=== PATIENT | female | born 1945 | race Caucasian/White ===

== ENCOUNTER → 2016-06-10 | Outpatient (CLI) | payer MEDICARE, OTHER | END | disposition home or self-care (01) | LOC: GMAB 15:23 | PROVIDERS: ATTEND Family Medicine | DX: D50.0 Iron deficiency anemia secondary to blood loss (chronic) (principal); R94.5 Abnormal results of liver function studies ==

== ENCOUNTER → 2016-06-18 | Outpatient (CLI) | payer MEDICARE, OTHER ==
--- NOTE | 2016-06-18 12:06 | US ---
EXAM DESCRIPTION: US LIVER CLINICAL HISTORY: ABN LIVER FUNCTION STUDY COMPARISON: MRI of the abdomen dated 10 March 2015. TECHNIQUE: Liver sonography. FINDINGS: Increased echogenicity is observed throughout the liver consistent with hepatic steatosis. There is mild intrahepatic bile duct dilatation. The common bile duct measures 15mm. The gallbladder is normal and contains no stones. The pancreas is not well seen on this exam. The upper abdominal aorta and the inferior vena cava are unremarkable. The right kidney is not imaged. IMPRESSION: 1. Hepatic steatosis. 2. Dilatation of the common bile duct and intrahepatic biliary radicals is observed. The common bile duct measures 1.5 cm in diameter. The findings are similar to what was seen on a previous magnetic resonance imaging examination Electronically signed by: Ab Molina MD 06/18/2016 12:05
== END | disposition home or self-care (01) ==
LOC: US 10:38
PROVIDERS: ATTEND Family Medicine
DX: R94.5 Abnormal results of liver function studies (principal)

== ENCOUNTER → 2017-08-05 | Outpatient (CLI) | payer MEDICARE, OTHER | END | disposition home or self-care (01) | LOC: GMAB 14:21 | PROVIDERS: ATTEND Family Medicine | DX: D50.0 Iron deficiency anemia secondary to blood loss (chronic) (principal); E53.8 Deficiency of other specified B group vitamins; I10 Essential (primary) hypertension ==

== ENCOUNTER → 2017-08-07 | Outpatient (CLI) | payer MEDICARE | END | disposition home or self-care (01) | LOC: GMAB 11:12 | PROVIDERS: ATTEND Family Medicine | DX: M79.1 Myalgia (principal); D50.0 Iron deficiency anemia secondary to blood loss (chronic) ==

== ENCOUNTER → 2018-09-08 | Outpatient (CLI) | payer MEDICARE | LOC: YCFC.O 10:43 | PROVIDERS: ATTEND Family Medicine | DX: Z00.00 Encounter for general adult medical examination without abnormal findings (principal); I10 Essential (primary) hypertension; D50.9 Iron deficiency anemia, unspecified ==

== ENCOUNTER 2018-11-01 10:53 | Emergency (ER) | payer MEDICARE ==
[2018-11-01] MEDS ORDERED: ASPIRIN (CHEWABLE) 81 MG TAB PO ONE (11:19)
--- NOTE | 2018-11-01 11:42 | RAD ---
EXAM: XR Chest, 1 View CLINICAL HISTORY: 73 years old and is Female; pain TECHNIQUE: Frontal view of the chest. COMPARISON: No relevant prior studies available. FINDINGS: Limitations: None. Lungs: Unremarkable. No consolidation. Pleural space: Unremarkable. No pneumothorax. Heart: Unremarkable. No cardiomegaly. Mediastinum: Moderate to large hiatal hernia. Bones/joints: Unremarkable. IMPRESSION: No acute findings. Electronically signed by: Jesi Law MD 11/01/2018 11:39 AM CDT
[2018-11-01] MEDS ORDERED: [UNRECOGNIZED DRUG - MIXTURE] PO ONE ×2 (12:15)
[2018-11-01] MEDS ORDERED: SUCRALFATE 1 GM/10 ML 1 GM UD PO ONE (12:16)
[2018-11-01] MEDS ORDERED: PANTOPRAZOLE SOD SUSP 40 MG PCKT PO ONE (12:16)
[2018-11-01] MEDS ORDERED: cloNIDine HCL 0.1 MG TAB PO ONE (12:22)
--- NOTE | 2018-11-01 12:22 | ED.PDOC ---
History of Present Illness - General Chief Complaint: Chest Pain/DC Stated Complaint: Chest pain, diaphoresis Time Seen by Provider: 11/01/18 11:10 Source: patient Exam Limitations: no limitations - History of Present Illness Initial Comments: Lidia Ivan 73 y/o female stated she woke up early this am 0230H with burning epigastric pain went up to her chest with feeling of tightness non radiating no diaphoresis,no N/V but symptoms persist decided to come to ER Stated had also non productive cough with nasal congestion for 2 days but denies SOB but with generalized body aches today. Timing/Duration: 7-24 hours Location: central Activities at Onset: sleep Prior Chest Pain/Cardiac Workup: no prior chest pain, no prior cardiac workup Improving Factors: nothing Worsening Factors: nothing Aspirin Treatment Today: 81 mg x 4 Associated Symptoms: denies symptoms Allergies/Adverse Reactions: Allergies NO KNOWN ALLERGY Allergy (Verified 11/01/18 11:19) Home Medications: Ambulatory Orders Esomeprazole Magnesium [Nexium] 20 mg PO BID 11/16/13 Lisinopril 40 mg PO DAILY 11/16/13 Review of Systems - Review of Systems Constitutional: States: no symptoms reported EENTM: States: see HPI, nose congestion Respiratory: States: see HPI, cough Cardiology: States: see HPI, other - exertional dyspnea Gastrointestinal/Abdominal: States: no symptoms reported Genitourinary: States: no symptoms reported Musculoskeletal: States: no symptoms reported Skin: States: no symptoms reported Neurological: States: no symptoms reported Endocrine: States: no symptoms reported All other Systems: Reviewed and Negative, No Change from Baseline Past Medical History (General) - Patient Medical History Hx Seizures: No Hx Stroke: No Hx Asthma: No Hx of COPD: No Hx Cardiac Disorders: Yes Hx Congestive Heart Failure: No Hx Pacemaker: No Hx Hypertension: Yes Hx Diabetes: No Hx Gastroesophageal Reflux: Yes Hx Cancer: No Hx Hepatitis C: No Hx MRSA: No Surgical History: appendectomy, tonsillectomy, Hysterectomy, other - partial gastrectomy- gastric ulcer,hysterectomy - Vaccination History Hx Tetanus, Diphtheria Vaccination: No Hx Influenza Vaccination: No Hx Pneumococcal Vaccination: No - Social History Hx Tobacco Use: No Hx Chewing Tobacco Use: No Hx Alcohol Use: No Hx Substance Use: No Hx Substance Use Treatment: No Hx Depression: No Hx Physical Abuse: No Hx Emotional Abuse: No Hx Suspected Abuse: No - Activities of Daily Living Grooming Ability: Independent Eating (Feeding) Ability: Independent Toileting Ability: Independent - Female History Patient is a Female of Child Bearing Age (10 -59 yrs old): No Patient : No Family Medical History - Family History Mother Family History: Unknown Living Status: Hx Family Hypertension: Yes Hx Cardiac Disease: Yes - parents-DC Hx Family Cancer: Yes Father Living Status: Hx Family Hypertension: Yes Sister Living Status: Hx Family Hypertension: Yes Hx Family Stroke: Yes Brother Living Status: Hx Family Stroke: Yes Physical Exam - Physical Exam General Appearance: Alert, Comfortable, No apparent distress Eyes, Ears, Nose, Throat Exam: normal ENT inspection, pharynx normal Neck: non-tender, full range of motion, supple, normal inspection Respiratory: chest non-tender, lungs clear, normal breath sounds, no respiratory distress Cardiovascular/Chest: normal peripheral pulses, regular rate, rhythm, no murmur Peripheral Pulses: radial,right: 2+, radial,left: 2+ Gastrointestinal/Abdominal: non tender, soft, no organomegaly Extremity: non-tender, no pedal edema, no calf tenderness Neurologic: oriented x 3 Skin Exam: normal color, warm/dry Lymphatic: no adenopathy Progress - Progress Progress: 11/01/18 12:28 Vital Signs - 24 hr 11/01/18 10:55 Temperature 99.7 F H Pulse Rate [R 89 finger] Respiratory 20 Rate Blood Pressure 209/90 [R arm] O2 Sat by Pulse 95 Oximetry 11/01/18 15:58 Vital Signs - 8 hr 11/01/18 11/01/18 11/01/18 10:55 12:00 13:00 Temperature 99.7 F H Pulse Rate [R 89 94 H 86 finger] Respiratory 20 20 20 Rate Blood Pressure 209/90 243/99 213/119 [R arm] O2 Sat by Pulse 95 95 95 Oximetry 11/01/18 11/01/18 14:36 15:30 Temperature Pulse Rate [R 79 75 finger] Respiratory 20 18 Rate Blood Pressure 204/86 179/122 [R arm] O2 Sat by Pulse 94 L 97 Oximetry 11/01/18 16:50 Discuss hospital admit here at [facility] but since CT-ABD/P -showed CBD dilatation needs to be sent to [facility] with GI-specialist - Results/Orders Results/Orders: Vital Signs - 8 hr 11/01/18 11/01/18 11/01/18 10:55 12:00 13:00 Temperature 99.7 F H Pulse Rate [R 89 94 H 86 finger] Respiratory 20 20 20 Rate Blood Pressure 209/90 243/99 213/119 [R arm] O2 Sat by Pulse 95 95 95 Oximetry 11/01/18 11/01/18 14:36 15:30 Temperature Pulse Rate [R 79 75 finger] Respiratory 20 18 Rate Blood Pressure 204/86 179/122 [R arm] O2 Sat by Pulse 94 L 97 Oximetry Laboratory Tests 11/01/18 11/01/18 11/01/18 11:48 12:17 12:28 WBC 18.4 H RBC 5.39 Hgb 9.5 L Hct 33.3 L MCV 61.7 L MCH 17.5 L MCHC 28.4 L RDW 20.5 H Plt Count 417 H MPV 8.8 Absolute Neuts (auto) 15.00 H Absolute Lymphs (auto) 1.70 Absolute Monos (auto) 1.50 H Absolute Eos (auto) 0.20 Absolute Basos (auto) 0.10 Neutrophils % 81.4 H Lymphocytes % 9.2 L Monocytes % 8.1 Eosinophils % 1.0 Basophils % 0.3 PT 9.4 INR 0.94 PTT (SP) 23.9 D-Dimer, Quantitative 0.42 Sodium 138 Potassium 3.6 Chloride 105 Carbon Dioxide 24 Anion Gap 12.6 BUN 14 Creatinine 0.81 BUN/Creatinine Ratio 17.3 Random Glucose 99 Serum Osmolality 276.2 Lactic Acid 1.1 Calcium 9.3 Magnesium 2.1 Total Bilirubin 0.3 Direct Bilirubin < 0.1 Indirect Bilirubin 0.2 AST 24 ALT 23 Alkaline Phosphatase 88 Creatine Kinase 36 CK-MB (CK-2) 1.4 CK-MB (CK-2) % Not Reportable Troponin I < 0.02 Serum Total Protein 7.0 Albumin 3.7 Urine Color Urine Appearance Urine pH Ur Specific [place] Urine Protein Urine Glucose (UA) Urine Ketones Urine Blood Urine Nitrite Urine Bilirubin Urine Urobilinogen Ur Leukocyte Esterase Urine RBC Urine WBC Ur Epithelial Cells Urine Bacteria 11/01/18 11/01/18 14:27 14:40 WBC RBC Hgb Hct MCV MCH MCHC RDW Plt Count MPV Absolute Neuts (auto) Absolute Lymphs (auto) Absolute Monos (auto) Absolute Eos (auto) Absolute Basos (auto) Neutrophils % Lymphocytes % Monocytes % Eosinophils % Basophils % PT INR PTT (SP) D-Dimer, Quantitative Sodium Potassium Chloride Carbon Dioxide Anion Gap BUN Creatinine BUN/Creatinine Ratio Random Glucose Serum Osmolality Lactic Acid Calcium Magnesium Total Bilirubin Direct Bilirubin Indirect Bilirubin AST ALT Alkaline Phosphatase Creatine Kinase CK-MB (CK-2) CK-MB (CK-2) % Troponin I < 0.02 Serum Total Protein Albumin Urine Color Yellow Urine Appearance Clear Urine pH 6.5 Ur Specific [place] 1.010 Urine Protein Negative Urine Glucose (UA) Negative Urine Ketones Negative Urine Blood Negative Urine Nitrite Negative Urine Bilirubin Negative Urine Urobilinogen 0.2 Ur Leukocyte Esterase Trace H Urine RBC 0 Urine WBC 1-3 Ur Epithelial Cells 3-5 Urine Bacteria Rare - EKG/XRAY/CT EKG: Sinus, no ST T wave changes Comments: HR-91 XRAY: chest - no acute findings CT Ordered: Yes - extrahepatic ductal dilatation Departure - Departure Clinical Impression: Hypertensive urgency, Chest tightness or pressure, Common bile duct dilatation Time of Disposition: 16:53 Disposition: Transfer to Hospital Condition: Fair Departure Forms: ED Discharge - Pt. Copy, Patient Portal Self Enrollment Referrals: Michael Reilly MD [Primary Care Provider] - 1-2 Weeks Home Medications: Ambulatory Orders Esomeprazole Magnesium [Nexium] 20 mg PO BID 11/16/13 Lisinopril 40 mg PO DAILY 11/16/13 Transfer to Outside Facility - Transfer Information Accepting Provider:: Dr. 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
[2018-11-01] MEDS ORDERED: LIDOCAINE HCL 2% (MOUTH-THROAT) 15 ML UD ONE (12:23)
[2018-11-01] MEDS ORDERED: ALUM & MAG HYDROX-SIMETHICONE 30 ML UD ONE (12:23)
--- NOTE | 2018-11-01 13:56 | CT ---
PROCEDURE: CT Abdomen and Pelvis Without Intravenous Contrast CLINICAL INDICATION: The patient is 73 years years old, Female; abdominal pain TECHNIQUE: Axial computed tomography images of the abdomen and pelvis without intravenous contrast. Sagittal and coronal reformatted images were created and reviewed. This CT exam was performed using one or more of the following dose reduction techniques: automated exposure control, adjustment of the mA and/or kV according to patient size, and/or use of iterative reconstruction technique. COMPARISON: No relevant prior studies available. FINDINGS: LUNG BASES: There is a pleural-based calcified granuloma in the right lower lobe with minimal bibasilar discoid atelectasis or scarring. There is no acute consolidation, pleural effusions or pneumothoraces. HEART: The visualized heart appears prominent with particular dilatation of the left ventricle. MEDIASTINUM: There is a moderate sliding-type hiatal hernia with most of the fundus intrathoracic in location. ABDOMEN: LIVER: There is diffuse decreased attenuation of the liver which is only slightly more dense than the adjacent gallbladder contents with the exception of a thin pericholecystic rind. Impression suspect hepatic steatosis with pericholecystic sparing. GALLBLADDER AND BILE DUCTS: There is severe extrahepatic biliary ductal dilatation with the common hepatic duct measuring 1.2 cm and the distal common bile duct measuring 1.2 cm. PANCREAS: Unremarkable. No ductal dilatation, inflammatory changes or mass. SPLEEN: Unremarkable. No splenomegaly or focal defects. ADRENALS: Unremarkable. No mass or calcification. KIDNEYS AND URETERS: The appearance of cortical nodularity in the kidneys bilaterally is probably due to scarring but could be better evaluated with CT urography. There are no acute findings in the kidneys. There is no evidence of solid mass, hydronephrosis or radiopaque nonobstructive kidneys intrarenal calculi. Suspect a tiny calcification along the left renal hilum is probably atherosclerotic vascular calcification without definite evidence of nephrolithiasis. Small hypodensities in the kidneys are most likely cysts with the largest in the lower pole of the left kidney measuring 2.7 cm x 2.8 cm. STOMACH AND BOWEL: The appearance of mild mural thickening in the splenic flexure and portions of the descending and sigmoid colon and rectum is probably due to incomplete distention versus mild inflammatory change. Postoperative changes of prior antrectomy with gastrojejunal anastomosis noted. The stomach including the herniated portion in the chest is moderately to severely distended with food stuffs which is concerning for inferior gastric emptying as occur with narrowing, i.e. an anastomotic stricture versus versus gastroparesis. The small bowel appears normal in course and caliber without inflammatory changes. PELVIS: APPENDIX: No findings to suggest acute appendicitis. BLADDER: Unremarkable, allowing for the degree of distention. There is no evidence of cystolithiasis or bladder mass. REPRODUCTIVE: The uterus is not identified. There are no adnexal masses. ABDOMEN and PELVIS: INTRAPERITONEAL SPACE: Unremarkable. No free air or free fluid. No significant focal fluid collection. BONES/JOINTS: There is an age indeterminate mild superior compression fracture of T12. There is no other evidence of acute fracture, osseous destruction or osteoblastic changes. There is multilevel lower thoracic and lumbar spondylosis with vertebral body marginal osteophytosis as well as severe disc space narrowing at L1-2 and L2-3 with mild eburnation of the endplates. There is symmetric mild to moderate bilateral primary osteoarthritic changes in the hips. SOFT TISSUES: . There are bilateral fat-containing inguinal hernias measuring up to 3.4 cm x 2.9 cm on the right and 3.1 cm x 2.4 cm on the left. There is a very tiny fat-containing umbilical hernia. VASCULATURE: There is scattered atherosclerosis without evidence of an aneurysm. LYMPH NODES: Unremarkable. There is no evidence of hilar, mediastinal or axillary adenopathy. IMPRESSION: 1. The appearance of mild mural thickening in the splenic flexure and portions of the descending and sigmoid colon and rectum is probably due to incomplete distention versus mild inflammatory change. 2. There is an age indeterminate mild superior compression fracture of T12. Recommend correlation for any clinical tenderness in this area. 3. Postoperative changes of prior antrectomy with gastrojejunal anastomosis noted. The stomach including the herniated portion in the chest is moderately to severely distended with food stuffs which is concerning for some impairment in gastric emptying as may occur with narrowing, i.e. an anastomotic stricture versus gastroparesis. 4. The appearance of cortical nodularity in the kidneys bilaterally is probably due to scarring but could be better evaluated with CT urography. 5. There is severe extrahepatic biliary ductal dilatation with the common hepatic duct measuring 1.2 cm and the distal common bile duct measuring 1.2 cm. Considerations include choledocholithiasis although a definite distal radiopaque calculus is not discernible. Benign or malignant stricture also in the differential. Recommend correlation with liver function tests and MRCP, ERCP if clinically indicated. Electronically signed by: Tamara Constantino MD 11/01/2018 1:54 PM CDT
[2018-11-01] MEDS ORDERED: SODIUM CHLORIDE 0.9% 1000ML 1,000 ML IVS ONE (14:24)
[2018-11-01] MEDS ORDERED: fentaNYL CITRATE INJ 50 MCG/ML AMP IV ONE (14:57)
[2018-11-01] MEDS ORDERED: LABETALOL INJ 5 MG/ML VIAL IV ONE (15:01)
[2018-11-01] MEDS ORDERED: amLODIPine BESYLATE 5 MG TAB PO ONE (15:47)
[2018-11-01 17:37] VITALS: BP 187/83; TEMP 98.2; O2SAT 95
== END 2018-11-01 17:15 | disposition short-term general hospital (02) ==
LOC: ER 10:53
DX: I16.0 Hypertensive urgency (principal); R07.89 Other chest pain; K83.8 Other specified diseases of biliary tract; R05 Cough; K21.9 Gastro-esophageal reflux disease without esophagitis; I51.9 Heart disease, unspecified; Z90.49 Acquired absence of other specified parts of digestive tract; Z79.899 Other long term (current) drug therapy
CPT/HCPCS: 36415; 71045; 74176; 80048; 80076; 81001; 82550; 82553; 83605; 84484; 85025; 85379; 85610; 85730; 93005; J3010; J7030

== ENCOUNTER → 2018-11-20 | Outpatient (CLI) | payer MEDICARE | LOC: LAB.O 07:17 | PROVIDERS: ATTEND Internal Medicine Cardiovascular Disease | DX: I10 Essential (primary) hypertension (principal) ==

== ENCOUNTER 2019-01-12 18:54 | Emergency (ER) | payer MEDICARE ==
[2019-01-12] MEDS ORDERED: HYDROcodone 5MG/APAP 325MG 1 EA TAB PO ONE (19:58)
--- NOTE | 2019-01-12 20:30 | RAD ---
EXAM: Hand,Right 3 Views CLINICAL INDICATION: 73-year-old female status post fall. TECHNIQUE: Three views RIGHT hand were obtained in AP, lateral and oblique projections COMPARISON: None. FINDINGS: There is no fracture or dislocation. Distal interphalangeal joint space narrowing with osteophyte formation and subchondral sclerosis suggesting osteoarthritis. Mild degenerative change of the basilar/triscaphe joint. No soft tissue abnormalities are seen. IMPRESSION: Degenerative change without acute radiographic abnormality. Electronically signed by: Ora Jackson MD 01/12/2019 8:29 PM CDT
--- NOTE | 2019-01-12 20:30 | RAD ---
EXAM: Foot,Left 3 Views CLINICAL INDICATION: 73-year-old female status post fall. TECHNIQUE: Three views LEFT foot were obtained in AP, lateral and oblique projections COMPARISON: None. FINDINGS: There is no fracture or dislocation. The joint spaces are preserved. No soft tissue abnormalities are seen. The bones reveal diffuse demineralization. Plantar heel spur and Achilles tendon enthesophyte. IMPRESSION: No acute radiographic abnormality. Electronically signed by: Ora Jackson MD 01/12/2019 8:28 PM CDT
--- NOTE | 2019-01-12 20:34 | ED.PDOC ---
History of Present Illness - General Chief Complaint: Lower Extremity Injury Stated Complaint: left ankle pain Time Seen by Provider: 01/12/19 19:13 - History of Present Illness Initial Comments: Patient is a 73 yo F presenting with ground level fall earlier this afternoon. She states that she did not hit her head or lose consciousness. She states that her left ankle rolled inwards and has been unable to ambulate since that time. She is also endorsing right wrist pain. She denies any other injuries. She denies any numbness or weakness. Allergies/Adverse Reactions: Allergies NO KNOWN ALLERGY Allergy (Verified 11/01/18 11:19) Home Medications: Ambulatory Orders RX: Esomeprazole Magnesium [Nexium] 20 mg PO BID 11/16/13 RX: Lisinopril 40 mg PO DAILY 11/16/13 Acetaminophen W/ Codeine [Tylenol W/ CODEINE #3] 1 ea PO Q8HR PRN #10 01/12/19 Review of Systems - Review of Systems Constitutional: States: no symptoms reported EENTM: States: no symptoms reported Respiratory: States: no symptoms reported Cardiology: States: no symptoms reported Gastrointestinal/Abdominal: States: no symptoms reported Musculoskeletal: States: see HPI Past Medical History (General) - Patient Medical History Hx Seizures: No Hx Stroke: No Hx Asthma: No Hx of COPD: No Hx Cardiac Disorders: Yes Hx Congestive Heart Failure: No Hx Pacemaker: No Hx Hypertension: Yes Hx Diabetes: No Hx Gastroesophageal Reflux: Yes Hx Cancer: No Hx Hepatitis C: No Hx MRSA: No Surgical History: appendectomy, tonsillectomy, Hysterectomy - Vaccination History Hx Tetanus, Diphtheria Vaccination: Yes Hx Influenza Vaccination: Yes Hx Pneumococcal Vaccination: Yes Immunizations Up to Date: Yes - Social History Hx Tobacco Use: No Hx Chewing Tobacco Use: No Hx Alcohol Use: No Hx Substance Use: No Hx Substance Use Treatment: No Hx Depression: No Hx Physical Abuse: No Hx Emotional Abuse: No Hx Suspected Abuse: No - Activities of Daily Living Hospice Agency (if applicable):: None - Female History Patient is a Female of Child Bearing Age (10 -59 yrs old): No Patient : No - Triage Comment ED Triage Comment: pt voices pain to left ankle after sustaining a fall [place] the [employer] [place] this morning. left ankle appears swollen and painful to touch. dp/pt pulses to left lower extremity, as well as all other extremities, present and palpable. skin warm and dry and cool to touch. pt denies numbness and tingling to left lower extremity. Family Medical History - Family History Brother Living Status: Hx Family Stroke: Yes Father Living Status: Hx Family Hypertension: Yes Hx Cardiac Disease: Yes Mother Family History: Unknown Living Status: Hx Family Hypertension: Yes Hx Cardiac Disease: Yes - parents-CO Hx Family Cancer: Yes Sister Living Status: Hx Family Hypertension: Yes Hx Family Stroke: Yes Physical Exam - Physical Exam General Appearance: Alert, Comfortable, No apparent distress Eyes, Ears, Nose, Throat: normal ENT inspection Neck: full range of motion, supple Cardiovascular/Respiratory: regular rate, rhythm, no M/R/G, normal peripheral pulses, no JVD, normal breath sounds, no respiratory distress Gastrointestinal/Abdominal: non-tender Thigh/Hip: normal inspection, non-tender Leg: normal inspection, non-tender, no evidence of injury Knee: normal inspection, non-tender, no evidence of injury Ankle: normal inspection, non-tender, no evidence of injury Foot: bone tenderness - Lateral metatarsals on LLE Progress - Progress Progress: Castro fx, ankle sprain, Fibula fx, wrist fx 01/13/19 06:21 Patient presents for evaluation of GLF and left foot pain. She was overall well appearing and non-toxic. She was neurovascularly intact. She was tender over the left foot and right wrist. Imaging was obtained and found to be negative. She was given crutches to keep her off LLE. She will follow-up with PCP for re- evaluation. Her pain is likely secondary to inversion ankle sprain. - Results/Orders Results/Orders: TECHNIQUE: Three views RIGHT hand were obtained in AP, lateral and oblique projections COMPARISON: None. FINDINGS: There is no fracture or dislocation. Distal interphalangeal joint space narrowing with osteophyte formation and subchondral sclerosis suggesting osteoarthritis. Mild degenerative change of the basilar/triscaphe joint. No soft tissue abnormalities are seen. IMPRESSION: Degenerative change without acute radiographic abnormality. Electronically signed by: Ora Jackson MD 01/12/2019 8:29 PM CDT TECHNIQUE: Three views LEFT foot were obtained in AP, lateral and oblique projections COMPARISON: None. FINDINGS: There is no fracture or dislocation. The joint spaces are preserved. No soft tissue abnormalities are seen. The bones reveal diffuse demineralization. Plantar heel spur and Achilles tendon enthesophyte. IMPRESSION: No acute radiographic abnormality. Electronically signed by: Ora Jackson MD 01/12/2019 8:28 PM CDT Departure - Departure Clinical Impression: Foot pain, left, Fall Time of Disposition: 20:32 Disposition: Discharge to Home or Self Care Condition: Fair Departure Forms: ED Discharge - Pt. Copy, Patient Portal Self Enrollment Instructions: DI for Leg Pain Diet: resume usual diet Activity: other - Use crutches for the next three days Referrals: Michael Reilly MD [Primary Care Provider] - 1-2 Weeks Prescriptions: Acetaminophen W/ Codeine [Tylenol W/ CODEINE #3] 1 ea PO Q8HR PRN #10 PRN Reason: Pain Home Medications: Ambulatory Orders RX: Esomeprazole Magnesium [Nexium] 20 mg PO BID 11/16/13 RX: Lisinopril 40 mg PO DAILY 11/16/13 Acetaminophen W/ Codeine [Tylenol W/ CODEINE #3] 1 ea PO Q8HR PRN #10 01/12/19 Comments[id number]
[2019-01-12 20:41] VITALS: BP 145/76; TEMP 97.8; O2SAT 94
== END 2019-01-12 20:45 | disposition home or self-care (01) ==
LOC: ER 18:54
DX: M25.572 Pain in left ankle and joints of left foot (principal); M25.531 Pain in right wrist; I51.9 Heart disease, unspecified; I10 Essential (primary) hypertension; K21.9 Gastro-esophageal reflux disease without esophagitis; Z79.899 Other long term (current) drug therapy

== ENCOUNTER → 2019-02-25 | Outpatient (CLI) | payer MEDICARE ==
--- NOTE | 2019-02-25 15:02 | RAD ---
EXAM DESCRIPTION: Hip,Left 2 Views CLINICAL HISTORY: 73 years Female, HIP PN COMPARISON: CT abdomen and pelvis 11/01/2018. TECHNIQUE: 2 views of the left hip. IMPRESSION: Partially obscured sacrum and coccyx by overlying bowel. No acute displaced fracture. No dislocation. Moderate arthrosis of the left hip. Pubic joints intact. Phleboliths in the left hemipelvis. Mild sclerosis about the left SI joint. No radiopaque foreign body. Electronically signed by: Cipriano Eddy MD 02/25/2019 3:01 PM CDT
== END ==
LOC: YCFC.O 09:29
PROVIDERS: ATTEND Family Medicine
DX: M16.12 Unilateral primary osteoarthritis, left hip (principal); I87.8 Other specified disorders of veins; M53.3 Sacrococcygeal disorders, not elsewhere classified; D50.9 Iron deficiency anemia, unspecified

== ENCOUNTER 2019-05-31 05:44 | Day surgery (SDC) | payer MEDICARE ==
[2019-05-31] MEDS ORDERED: MOXIFLOXACIN HCL (OPHTH) 1 DROP DROPS ONE (06:35)
[2019-05-31] MEDS ORDERED: TROP 1%/CYCLOPEN 1%/PHENYL 2% DROPS ONE (06:35)
[2019-05-31] MEDS ORDERED: PROPARACAINE 0.5% OPHTH SOL 15 ML BTTL ONE (06:35)
[2019-05-31] MEDS ORDERED: MIDAZOLAM INJ 2 MG/2 ML VIAL ONE (11:33)
[2019-05-31] MEDS ORDERED: DEXAMETHASONE 0.1% OPHTH SOL 1 DROP LEFT_EYE ONE (11:41)
[2019-05-31] MEDS ORDERED: PROPARACAINE 0.5% OPHTH SOL 15 ML BTTL LEFT_EYE ONE (11:41)
[2019-05-31] MEDS ORDERED: MOXIFLOXACIN HCL (OPHTH) 1 DROP DROPS LEFT_EYE ONE (11:41)
[2019-05-31] MEDS ORDERED: LIDOCAINE 1% 2 ML VIAL INJ ONE (11:43)
[2019-05-31] MEDS ORDERED: TOBRAMYCIN SULF 0.3 % OPHTH OINT 1 APPLIC LEFT_EYE ONE (11:44)
[2019-05-31] MEDS ORDERED: BRIMONIDINE 0.2% OPHTH DROPS LEFT_EYE ONE (11:44)
== END 2019-05-31 12:45 | disposition home or self-care (01) ==
LOC: AMB 05:44
PROVIDERS: ATTEND Ophthalmology
DX: H25.12 Age-related nuclear cataract, left eye (principal); I10 Essential (primary) hypertension; Z79.82 Long term (current) use of aspirin; Z79.899 Other long term (current) drug therapy
CPT/HCPCS: 00142; 66984; J2250

== ENCOUNTER → 2019-06-04 | Outpatient (CLI) | payer MEDICARE | LOC: LAB.O 10:37 | PROVIDERS: ATTEND Internal Medicine Hematology & Oncology | DX: D50.9 Iron deficiency anemia, unspecified (principal); D64.9 Anemia, unspecified ==

== ENCOUNTER 2019-06-14 00:43 | Day surgery (SDC) | payer MEDICARE ==
[2019-06-14] MEDS ORDERED: TROP 1%/CYCLOPEN 1%/PHENYL 2% DROPS ONE (06:15)
[2019-06-14] MEDS ORDERED: PROPARACAINE 0.5% OPHTH SOL 15 ML BTTL ONE (06:15)
[2019-06-14] MEDS ORDERED: MOXIFLOXACIN HCL (OPHTH) 1 DROP DROPS ONE (06:15)
[2019-06-14] MEDS ORDERED: MIDAZOLAM INJ 2 MG/2 ML VIAL ONE (07:33)
[2019-06-14] MEDS ORDERED: PROPARACAINE 0.5% OPHTH SOL 15 ML BTTL RIGHT_EYE ONE ×2 (08:43→09:00)
[2019-06-14] MEDS ORDERED: MOXIFLOXACIN HCL (OPHTH) 1 DROP DROPS RIGHT_EYE ONE ×2 (08:44→09:00)
[2019-06-14] MEDS ORDERED: DEXAMETHASONE 0.1% OPHTH SOL 1 DROP RIGHT_EYE ONE ×2 (08:44→09:00)
[2019-06-14] MEDS ORDERED: LIDOCAINE 1% 2 ML VIAL INJ ONE ×2 (08:44→09:00)
[2019-06-14] MEDS ORDERED: TOBRAMYCIN SULF 0.3 % OPHT SOL 1 DROP RIGHT_EYE ONE ×2 (08:45→09:00)
[2019-06-14] MEDS ORDERED: BRIMONIDINE 0.2% OPHTH DROPS RIGHT_EYE ONE ×2 (08:46→09:00)
[2019-06-14] MEDS ORDERED: fentaNYL CITRATE INJ 50 MCG/ML AMP ONE (08:57)
[2019-06-14] MEDS ORDERED: LIDOCAINE 1% MPF 2 ML VIAL INJ ONE (09:00)
== END 2019-06-14 10:00 | disposition home or self-care (01) ==
LOC: AMB 00:43
PROVIDERS: ATTEND Ophthalmology
DX: H25.11 Age-related nuclear cataract, right eye (principal); I10 Essential (primary) hypertension; Z79.899 Other long term (current) drug therapy
CPT/HCPCS: 00142; 66984; J2250; J3010

== ENCOUNTER → 2019-10-28 | Outpatient (CLI) | payer MEDICARE | LOC: YCFC.O 14:22 | PROVIDERS: ATTEND Family Medicine | DX: D50.9 Iron deficiency anemia, unspecified (principal) ==

== ENCOUNTER → 2020-01-13 | Outpatient (CLI) | payer MEDICARE ==
--- NOTE | 2020-01-14 07:47 | RAD ---
EXAM: Shoulder,Left 2 or More Views CLINICAL HISTORY: SHOULDER PAIN LEFT COMPARISON STUDY: Chest x-ray from November 01, 2018 TECHNICAL: 4 x-ray images of the left shoulder. FINDINGS: Internal and external rotation views of the shoulder in AP projection show no evidence of fracture or dislocation. There are mild degenerative changes of the acromioclavicular joint. Increased pulmonary opacity is seen within the left lung base and blunting of the left costophrenic angle. IMPRESSION: 1. Negative left adult shoulder with minimal degenerative changes of the AC joint. 2. Possible left lower lobe infiltrate and small left pleural effusion. PA/lateral chest x-ray and clinical correlation requested. Electronically signed by: Himanshu Hassan MD 01/14/2020 7:46 AM CDT
== END ==
LOC: RAD 10:05
PROVIDERS: ATTEND Orthopaedic Surgery
DX: M19.012 Primary osteoarthritis, left shoulder (principal); R91.8 Other nonspecific abnormal finding of lung field; J90 Pleural effusion, not elsewhere classified

== ENCOUNTER → 2020-02-14 | Outpatient (CLI) | payer MEDICARE ==
--- NOTE | 2020-02-15 15:55 | RAD ---
EXAM DESCRIPTION: Chest,2 Views CLINICAL HISTORY: INFILTRATE OF LUNG COMPARISON: Previous chest x-ray November 01, 2018 TECHNIQUE: PA/lateral FINDINGS: Large hiatal hernia behind the heart. Heart size is prominent with normal pulmonary vascularity. No pleural effusion or pneumothorax. Lungs are clear with no consolidating infiltrate. Lateral view shows intact sternum and osteopenic T-spine. IMPRESSION: No acute process is identified in the chest. Electronically signed by: Jamie Wilder MD 02/15/2020 3:53 PM CDT
== END ==
LOC: YCFC.O 16:29
PROVIDERS: ATTEND Family Medicine
DX: R91.8 Other nonspecific abnormal finding of lung field (principal)

== ENCOUNTER → 2020-02-15 | Outpatient (CLI) | payer MEDICARE | LOC: YCFC.O 11:17 | PROVIDERS: ATTEND Family Medicine | DX: L65.9 Nonscarring hair loss, unspecified (principal); D50.9 Iron deficiency anemia, unspecified ==